=== PATIENT | female | born 1945 | race Caucasian/White ===

== ENCOUNTER → 2017-08-06 | Outpatient (CLI) | payer OTHER ==
[~2017-08-06] MED LIST: CLTP PO
[2017-08-06 13:03] LABS: BASO % 0.9 %; BASO ABS # 0.07 K/uL (0-0.2); EOS % 3.6 %; EOS ABS # 0.27 K/uL (0-0.5); HEMATOCRIT 38.7 % (37-47); HEMOGLOBIN 12.7 g/dL (12.0-16.0); IG# 0.02 K/uL (0.00-0.02); LYMPH % 32.2 %; LYMPH ABS # 2.44 K/uL (1.2-3.4); MEAN CELL VOLUME 91.3 fL (80-100); MEAN CORPUSCULAR HGB CONC 32.8 g/dl (32-36); MONO % 7.7 %; MONO ABS # 0.58 K/uL (0.11-0.59); NEUT % 55.3 %; NEUT ABS # 4.19 K/uL (1.4-6.5); PLATELET COUNT 353 K/uL (130-400); RED CELL DISTRIBUTION WIDTH CV 13.3 % (11.5-14.5); WHITE BLOOD COUNT 7.57 K/uL (4.8-10.8)
== END | disposition home or self-care (01) ==
LOC: C.LABBC 11:31
PROVIDERS: ATTEND Orthopaedic Surgery Orthopaedic Surgery of the Spine
DX: M54.9 Dorsalgia, unspecified (principal)

== ENCOUNTER → 2017-08-12 | Outpatient (CLI) | payer OTHER, BC ==
[~2017-08-12] MED LIST changes: +ASPI81TA28 PO; +ATOR-24 PO; +BRIM0.1S OPL; +CALC1TAB9 PO; +TRAM-10 PO
--- NOTE | 2017-08-12 17:38 | DIAGNOSTIC IMAGING REPORT ---
NUCLEAR MEDICINE THREE-PHASE WHOLE BODY BONE SCAN CLINICAL HISTORY: Back pain COMPARISON STUDY: No previous studies for comparison. FINDINGS: The patient was injected with 26.8 mCi of technetium 99m MDP. A vascular sequence centered on the spine was performed. There were no areas of hyperemia. Blood pool images were also acquired. These are unremarkable. Three-hour delayed whole body images were supplemented with spot images of the lumbar spine in multiple projections. Foci of increased activity within the right knee are felt to be degenerative. There is a focus of increased activity at the L3 level to the left of midline posteriorly. Correlation with conventional radiographic imaging and/or cross-sectional imaging is recommended. Foci of increased activity are also visualized symmetrically at the lumbosacral junction. These are likely degenerative. Again correlation with conventional radiographs and/or cross-sectional imaging would be of benefit. IMPRESSION: Unexplained focus of moderately intense increased activity at the L3 level to the left of midline. Correlation with conventional radiographic imaging and/or cross-sectional imaging is recommended in follow-up. Electronically signed by: Johnny Hong M.D. 08/12/2017 5:37 PM Dictated Date/Time: 08/12/2017 5:31 PM
== END | disposition home or self-care (01) ==
LOC: C.NUCL 12:57
PROVIDERS: ATTEND Orthopaedic Surgery Orthopaedic Surgery of the Spine
DX: M54.9 Dorsalgia, unspecified (principal)

== ENCOUNTER 2017-09-02 09:59 | Observation (INO) | payer OTHER, BC ==
[2017-08-22 09:17] VITALS: BMI 28.0
--- NOTE | 2017-08-22 09:41 | PAT Medication Instructions ---
Service Date Aug 22, 2017. Current Home Medication List Aspirin (Aspirin Ec), 81 MG PO QPM Atorvastatin (Lipitor), 40 MG PO QPM Brimonidine Tartrate (Alphagan P Oph), 1 DROP OPL BID Calcium Citrate-Vitamin D (Citracal + D3 Maximum), 1 TAB PO QAM Tramadol (Ultram), 50 MG PO UD PRN for Pain Medication Instructions For Your Scheduled Surgery - Hold the following medications the morning of surgery: Calcium Citrate-Vitamin D (Citracal + D3 Maximum), 1 TAB PO QAM - Take the following medications the morning of surgery with a sip of water: Brimonidine Tartrate (Alphagan P Oph), 1 DROP OPL BID (bring with you to the hospital) Tramadol (Ultram), 50 MG PO UD PRN for Pain (if needed, can be used up to four hours before surgery) - Take the following medications as scheduled the night before surgery: Aspirin (Aspirin Ec), 81 MG PO QPM Atorvastatin (Lipitor), 40 MG PO QPM Brimonidine Tartrate (Alphagan P Oph), 1 DROP OPL BID Tramadol (Ultram), 50 MG PO UD PRN for Pain (if needed) If you have any questions please call us at [phone] or [phone] or [phone]
--- NOTE | 2017-08-22 10:28 | DIAGNOSTIC IMAGING REPORT ---
CHEST 2 VIEWS ROUTINE CLINICAL HISTORY: Preoperative chest COMPARISON STUDY: No previous studies for comparison. FINDINGS: The cardiac and mediastinal contours are normal. There is no evidence of focal pulmonary consolidation. There is no evidence of failure. No pleural effusions are visualized.[ IMPRESSION: No active disease in the chest. Electronically signed by: Johnny Hong M.D. 08/22/2017 10:26 AM Dictated Date/Time: 08/22/2017 10:26 AM
[2017-08-22 11:22] LABS: PTT PATIENT 25.2 SECONDS (21.0-31.0)
[2017-08-22 11:32] LABS: CALCIUM 9.1 mg/dl (8.5-10.1); CREATININE 0.82 mg/dl (0.60-1.20); POTASSIUM 4.2 mmol/L (3.5-5.1)
--- NOTE | 2017-09-01 19:18 | HISTORY & PHYSICAL EXAMINATION ---
DATE OF ADMISSION: 09/02/2017 CHIEF COMPLAINT: Back and lower extremity difficulty, paresthesias, numbness and tingling, and gait abnormality, six weeks in duration, made worse with sitting, lying lifting, walking. X-rays MRIs all been performed. She has had images. She has had x-rays. She has had injections. She is worsening. She denies any worrisome issues such as fevers, sweats, chills. MEDICATIONS: Lipitor. SOCIAL HISTORY: . No alcohol or tobacco use. Active life. SURGICAL HISTORY: Breasts mass removal, hysterectomy. MEDICAL HISTORY: Positive for high cholesterol. No hypertension, COPD, carcinoma, kidney disease, liver disease. REVIEW OF SYSTEMS: She denies any blurred vision, double vision, tinnitus or vertigo, syncope. Denies any chest pain, palpitations. No asthma, wheezing, shortness of breath. Denies nausea, vomiting, urgency, frequency, dysuria. OBJECTIVE: GENERAL: She is alert, oriented, pleasant young lady. VITAL SIGNS: Blood pressure 130/80, pulse 80, respiration rate 16. She is 4 foot 10 inches, 138 pounds. She is alert, oriented. CARDIAC: Normal S1, S2, no S3. LUNGS: Clear to auscultation. No rales, rhonchi, wheezing. ABDOMEN: Soft, nontender, bowel sounds present in all quadrants. NEUROLOGIC: She is neurological intact, 5/5 strength, good sensation, good motor ability. No good reflex ability. Cranial and facial nerves all intact. No upper motor neuron pathology. Images demonstrate moderate stenosis at 4-5 and, S1. IMPRESSION: Moderate stenosis L4-5 and, S1 lumbar spine. PLAN: Includes a laminectomy L4-L5 and, S1 lumbar spine.
[2017-09-02] VITALS (7 sets, daily range): BP systolic 127–152; BP diastolic 77–97; PULSE 71–95; TEMP 36.3–36.7; O2SAT 92–99; Ht 147.3 cm; Wt 61.7 kg
[~2017-09-02] VITALS: Ht 147.3 cm; Wt 61.7 kg
[2017-09-02] MEDS: LACTATED RINGER'S 1000ML 1,000 ML IV SCH ×2 (06:00→14:29)
[~2017-09-02 09:59] MED LIST changes: +ATROPINE SULFATE 0.1 MG/ML 5ML SYR IV PRN; +CEFAZOLIN 1000MG IV PUSH 7.5 ML IV SCH; -CLTP PO; +EpHEDrine SULFATE INJ 50 MG/ML AMP IV PRN; +HYDROmorphone INJ 2 MG/ML SYR/VIAL IV PRN; +NSS 1000ML IV SCH; +ONDANSETRON INJ 2 MG/ML 2 ML VIAL IV PRN; +PHENYLEPHRINE 100MCG/ML 5ML SYR IV PRN
[2017-09-02] MEDS ORDERED: MIDAZOLAM HCL 1 MG/ML 2ML VIAL ONE (11:38)
[2017-09-02] MEDS ORDERED: PROPOFOL IV EMULSION 10 MG/ML 20 ML VIAL IV ONE (11:38)
[2017-09-02] MEDS ORDERED: GLYCOPYRROLATE INJ 0.2 MG/ML VIAL ONE (11:38)
[2017-09-02] MEDS ORDERED: NEOSTIGMINE METHYLSULFATE 5 MG/5 ML SYR ONE (11:38)
[2017-09-02] MEDS ORDERED: ONDANSETRON INJ 2 MG/ML 2 ML VIAL ONE (11:38)
[2017-09-02] MEDS ORDERED: SUCCINYLCHOLINE CHLORIDE 20 MG/ML 10 ML VIAL IV ONE (11:38)
[2017-09-02] MEDS ORDERED: EpHEDrine SULFATE INJ 50 MG/ML AMP ONE (11:38)
[2017-09-02] MEDS ORDERED: FENTANYL CITRATE INJ 50 MCG/1 ML 2 ML VIAL ONE (11:38)
[2017-09-02] MEDS ORDERED: PHENYLEPHRINE HCL INJ 10 MG/ML VIAL ONE (11:38)
[2017-09-02] MEDS ORDERED: DEXAMETHASONE SOD INJ 4 MG/ML VIAL ONE (11:38)
[2017-09-02] MEDS ORDERED: LIDOCAINE HCL 2% 2 ML VIAL (20MG/ML) ONE (11:38)
--- NOTE | 2017-09-02 12:10 | History & Physical Bridge Note ---
H&P Re-Evaluation Bridge Note: I have examined the patient, reviewed the History & Physical and in the interval since the performance of the History & Physical I have noted the following changes of clinical significance: No changes noted
[2017-09-02] MEDS ORDERED: GELATIN SPONGE SZ 100 ONE (12:21)
[2017-09-02] MEDS ORDERED: THROMBIN FOR SOLN 20000 UNIT KIT ONE (12:21)
[2017-09-02] MEDS ORDERED: VANCOMYCIN HCL 1000MG/20ML VIAL ONE (12:22)
[2017-09-02] MEDS ORDERED: BACITRACIN 50000 UNIT VIAL ONE (12:22)
[2017-09-02] MEDS ORDERED: BUPIVACAINE/EPINEPHRINE 0.5% MPF 1:200,000 30 ML VIAL ONE ×2 (12:22→12:23)
--- NOTE | 2017-09-02 13:50 | [facility] Post Operative Brief Note ---
Immediate Operative Summary Operative Date Sep 02, 2017. Pre-Operative Diagnosis Moderate stenosis L4-5 and, S1 lumbar spine. Post-Operative Diagnosis Moderate stenosis L4-5 and, S1 lumbar spine. Procedure(s) Performed L4-L5, L5-S1 Laminectomy Surgeon Dr. Pineda Derrickman Helper Surgeon(s) Daryl Reis PA-C Estimated Blood Loss 50 cc Findings Consistent with Post-Op Diagnosis Specimens none per surgeon Drains hemovac Anesthesia Type General Complication(s) none Disposition Disposition: Recovery Room / PACU
[2017-09-02] MEDS ORDERED: SODIUM CHLORIDE 0.9% 1000ML 1,000 ML IV SCH (13:56)
[2017-09-02] MEDS ORDERED: MAGNESIUM HYDROXIDE SUSP 30 ML UDC PO PRN (14:00)
[2017-09-02] MEDS ORDERED: METOCLOPRAMIDE HCL INJ 5 MG/ML 2 ML VIAL IV PRN (14:00)
[2017-09-02] MEDS ORDERED: LORAZEPAM 1 MG TAB PO PRN (14:00)
[2017-09-02] MEDS ORDERED: ACETAMINOPHEN 325 MG TAB PO PRN (14:00)
[2017-09-02] MEDS ORDERED: LORAZEPAM INJ 1 MG in SYRINGE 0.5 ML IV PRN (14:00)
[2017-09-02] MEDS ORDERED: HYDROmorphone INJ 2 MG/ML SYR/VIAL IV PRN ×2 (14:00)
[2017-09-02] MEDS ORDERED: ONDANSETRON INJ 2 MG/ML 2 ML VIAL IV PRN (14:00)
[2017-09-02] MEDS ORDERED: PROMETHAZINE HCL INJ 12.5 MG in SODIUM CHLORIDE 0.9% 50ML 50 ML IV PRN (14:00)
[2017-09-02] MEDS ORDERED: ROCURONIUM BROMIDE 10 MG/ML 5 ML VIAL IV ONE (14:06)
[2017-09-02] MEDS ORDERED: ESMOLOL HCL 10 MG/ML 10 ML VIAL ONE (14:06)
[2017-09-02] MEDS ORDERED: IV FLUIDS COMPLETED PRN (14:15)
--- NOTE | 2017-09-02 14:15 | DIAGNOSTIC IMAGING REPORT ---
LUMBAR SPINE, INTRAOPERATIVE FLUOROSCOPY HISTORY: L4-L5 and L5-S1 laminectomy. FLUOROSCOPY TIME: 1 second. FINDINGS: Intraoperative fluoroscopy was provided for the lumbar spine. Single fluoroscopic spot image demonstrates skin retractors posterior to the L4-S1 levels. IMPRESSION: Fluoroscopy provided for a L4-5 and L5-S1 laminectomies.. Electronically signed by: Fernando Mcmillan M.D. 09/02/2017 2:14 PM Dictated Date/Time: 09/02/2017 2:13 PM
--- NOTE | 2017-09-02 14:23 | OPERATIVE REPORT ---
DATE OF OPERATION: 09/02/2017 PREOPERATIVE DIAGNOSIS: Spinal stenosis of lumbar spine, L4, L5, and S1, 3-level spinal stenosis. POSTOPERATIVE DIAGNOSIS: Spinal stenosis of lumbar spine, L4, L5, and S1, 3-level spinal stenosis. PROCEDURE: Include laminectomy L4, L5, and sacrum, foraminotomy, partial facetectomy. SURGEON: Eddie Pineda DO SUGAR CHIPPER MACHINE OPERATOR: Daryl Reis PA-C COMPLICATIONS: Zero. BLOOD LOSS: 50 mL. DRAINS USED AT THE END: 1 Hemovac drain. ANESTHETIC: General. COUNTS: Sponge and needle count correct. IMPLANTS: No implants used. DESCRIPTION OF PROCEDURE: The patient was taken the operating room, placed prone, scrubbed, prepped and draped sterile. We made a skin incision, fascial incision, putting a deep self-retaining retractor. We decompressed the neural elements starting at the L5-S1 interspace, decompressing first the 5 lamina, then 4. We completed then with the sacral lamina. We did foraminotomies, exposed, and decompressed each and every nerve root. I was pleased with the decompression. There was no instability factors. We irrigated and closed in layers of over vancomycin powder and Hemovac drain. Sterile dressings applied. The patient returned to recovery room satisfactory and stable. I attest to the content of the Intraoperative Record and any orders documented therein. Any exception s are noted below.
[2017-09-02] MEDS ORDERED: HYDROmorphone INJ 0.5 MG/0.5 ML SYR ONE ×2 (14:25)
--- NOTE | 2017-09-02 14:58 | Anesthesiology Progress Note ---
Anesthesia Post Op Note Date & Time Sep 02, 2017 at 14:58 Vital Signs Pain Intensity: 4 Vital Signs Past 12 Hours Date Time Temp Pulse Resp B/P (MAP) Pulse Ox O2 Delivery O2 Flow Rate FiO2 09/02/17 14:55 36.2 76 18 131/73 97 Nasal Cannula 4 09/02/17 14:45 36.2 79 18 140/73 98 Nasal Cannula 4 09/02/17 14:35 80 18 133/71 98 Nasal Cannula 4 09/02/17 14:25 85 18 141/78 100 Oxymask 10 09/02/17 14:15 91 18 144/84 100 Oxymask 10 09/02/17 14:09 36.0 90 18 143/81 98 Oxymask 10 09/02/17 10:46 36.7 95 20 146/77 (100) 97 Room Air Notes Mental Status: alert / awake / arousable, participated in evaluation Pt Amnestic to Procedure: Yes Nausea / Vomiting: adequately controlled Pain: adequately controlled Airway Patency, RR, SpO2: stable & adequate BP & HR: stable & adequate Hydration State: stable & adequate Anesthetic Complications: no major complications apparent
[2017-09-02] MEDS: OXYCODONE/ACETAMINOPHEN 5-325 TAB PO PRN ×2 (17:23→17:56)
[2017-09-02] MEDS: DEXAMETHASONE INJ 10 MG in SYRINGE 0 ML IV SCH (17:26)
[2017-09-02] MEDS: CEFAZOLIN IV 1,000 MG in SYRINGE 0 ML IV SCH (19:47)
[2017-09-02] MEDS: ATORVASTATIN 40 MG TAB PO SCH (20:40)
[2017-09-02] MEDS: ASPIRIN 81 MG ECTAB PO SCH (20:40)
[2017-09-03] MEDS: DEXAMETHASONE INJ 10 MG in SYRINGE 0 ML IV SCH ×3 (02:04→17:34)
[2017-09-03 03:05] VITALS: BP 135/82; PULSE 75; TEMP 36.4; O2SAT 91
[2017-09-03] MEDS: CEFAZOLIN IV 1,000 MG in SYRINGE 0 ML IV SCH ×2 (03:54→12:45)
[2017-09-03] MEDS ORDERED: NURSING VERBAL MED ORDER ONE ×2 (04:45→10:15)
[2017-09-03] MEDS ORDERED: BISACODYL 10 MG SUPP PR PRN (06:00)
[2017-09-03] MEDS ORDERED: BISACODYL 5 MG TABEC PO PRN (06:00)
--- NOTE | 2017-09-03 07:43 | Anesthesiology Progress Note ---
Anesthesia Post Op Note Date & Time Sep 03, 2017 at 07:42 Vital Signs Vital Signs Past 12 Hours Date Time Temp Pulse Resp B/P (MAP) Pulse Ox O2 Delivery O2 Flow Rate FiO2 09/03/17 03:05 36.4 75 16 135/82 (99) 91 Room Air 09/03/17 00:08 Room Air 09/02/17 22:49 36.4 88 17 127/79 (95) 92 Room Air Notes Mental Status: alert / awake / arousable, participated in evaluation Pt Amnestic to Procedure: Yes Nausea / Vomiting: adequately controlled Pain: adequately controlled Airway Patency, RR, SpO2: stable & adequate BP & HR: stable & adequate Hydration State: stable & adequate Anesthetic Complications: no major complications apparent
--- NOTE | 2017-09-03 08:03 | Discharge Instructions ---
Discharge Instructions Date of Service Sep 03, 2017. Admission Reason for Admission: Lumbar Spinal Stenosis Discharge Discharge Diagnosis / Problem: same Discharge Goals Goal(s): Improve function Activity Recommendations Activity Limitations: as noted below Lifting Limitations: until after follow-up appointment home and recover . Instructions / Follow-Up Instructions / Follow-Up MEDICATIONS: Please take your prescriptions as instructed at your pre-op appointment. SPECIAL CARE: The following information is intended to answer some of the common questions and concerns regarding your surgery. Each patient is an individual and receives individual counselling throughout the course of treatment, from diagnosis to surgery all the way through recovery. What follows is not an exhaustive list, but should be a useful guide to some of the common questions and concerns patients have regarding their surgeries. These are not provided to keep you from calling us; rather, they give you something accurate and concrete to reference as you recover from your procedure. If you need us, we are available to you. As always, if you are not sure about something, call us at [phone]. MEDICAL EMERGENCIES: For these conditions, call 911 or go to your local hospital-based Emergency Department - not [facility] or equivalent. * Paralysis * Severe chest pain or difficulty breathing * Swelling or redness of either leg Spine procedures can be rather complex and though complications are rare, they do occur. In such cases, effective advice regarding emergency situations cannot always be addressed over the telephone. You may be referred to the emergency department for more effective management of your problem. Activity Limitations: It is important to give your body time to heal, so please limit your activities : * In general, don't do anything that moves your spine too much. You should avoid contact sports, twisting or heavy lifting while you recover. * 5-10 pounds is all you should attempt to lift. * You should not plan on driving for approximately 3 weeks and you should avoid traveling more than 30-45 minutes at a time. Longer trips should be broken down with walking breaks spaced appropriately. * Physical therapy is not usually required. * Walking and good posture practices will help you recover and regain your function. * Avoid straining or sudden changes in position. * In general, the goal is to take it easy and recover. Don't cause any new problems. Just relax. Showers: * Do not take a bath, use a Jacuzzi or hot tub or otherwise submerge your incision. * It is usually safe to take a shower 4-5 days after your surgery. * Your incision does not require any special creams or ointments. * Simply clean it with soap and water, dry and re-dress with a clean bandage afterwards. Incision: * Keep incision clean, dry and protected until your first follow-up appointment. * Some amount of drainage and redness is normal. Any drainage should be fairly clear and not have a foul odor. * If you feel anything is wrong or you have excessive drainage, please call us. * Your stitches and sushila will be removed 10-14 days after your surgery. At the time of your first post-op visit. * Neck surgeries are typically closed with a suture underneath the skin. The steri-strips over the incision should be maintained until we see you in the office. Bracing: * You may be provided with a back or neck brace to encourage good posture and prevent injury. It will remind you not to do too much as you heal and will alert others to the fact that you have had a surgery. * Back braces may be removed for showers and when you are resting at home. They must be worn when you are walking around for any period of time or for travel. * For neck surgery, you will likely be provided with two cervical collars. The soft collar ([place] or foam rubber) is worn most commonly throughout the day and while sleeping. The plastic collar (provided at the hospital) is for showering/bathing. * Except while eating, collars should remain in place. More specifically, bracing is provided for a purpose and should be worn. * Please obtain your brace or collars prior to your operation and bring them to the hospital with you on the day of surgery. * You should also bring your collars to your post-op appointment with Dr. Pineda. You should always take good care of your body and practice healthy habits, especially following surgery. You should: * Follow your doctor's treatment plan * Sit and stand properly with good posture (ears over shoulders, shoulders over hips) Don't slouch * Learn to lift correctly * Exercise regularly (low-impact aerobic exercise is especially good, but check with your doctor first) * Generally, be up and walking for 5-10 minutes at a time at least 3-4 times per day from the day you get home * Increasing walking to tolerance until you can walk for 20-30 minutes at a time * Attain and maintain a healthy body weight * Eat healthy foods ( a well-balanced, low-fat diet rich in fruits and vegetables) and get enough calcium * Avoid excessive use of alcohol When to call our office - If you notice any of the following: * Increased pain not relieve by pain medicine * Fevers greater then 100 degrees F, chills or flu symptoms * Increased redness around incision * Drainage from the incision that is not clear * Any foul smelling drainage * Swelling or fluid collection beneath the skin Miscellaneous: * In the hospital, you may be given a walker or cane for support while walking. These are temporary needs and are intended to prevent injuries due to falls. You may discontinue them when you feel strong and steady enough on your feet. * Sleep in a comfortable position. We find that many patients find a lounge chair or recliner with several pillows to be beneficial in the early post-operative period. * The support stockings should be used for 7-10 days and may be discontinued when you are back to walking more and conducting usual household activities. No problem is insignificant. We are here to help you and get you well. Contact us at [phone]. Definitions: Foraminotomy: If part of the disc or a bone spur (osteophyte) is pressing on a nerve as it leaves the vertebra (through an exit called the foramen), a foraminotomy may be done. Otomy means "to make an opening." A foraminotomy is making the opening of the foramen larger, so the nerve can exit without being compressed. Laminotomy: Similar to the foraminotomy, a laminotomy makes a larger opening, this time in your bony plate protecting your spinal canal and spinal cord (the lamina). The lamina may be pressing on your nerve, so the surgeon may make more room for the nerves using a laminotomy. Laminectomy: Sometimes, a laminotomy is not sufficient. The surgeon may need to remove all or part of the lamina. This procedure is called a laminectomy. This can often be done at many levels without any harmful effects. Current Hospital Diet Patient's current hospital diet: Regular Diet Discharge Diet Recommended Diet: Regular Diet Procedures Procedures Performed: L4-L5, L5-S1 Laminectomy Pending Studies Studies pending at discharge: no Medical Emergencies . Who to Call and When: Medical Emergencies: If at any time you feel your situation is an emergency, please call 911 immediately. . Non-Emergent Contact Non-Emergency issues call your: Primary Care Provider . "Provider Documentation" section prepared by Eddie Pineda. .
[2017-09-03 08:30] VITALS: BP 136/82; PULSE 84; TEMP 36.4; O2SAT 94
[2017-09-03] MEDS: OXYCODONE/ACETAMINOPHEN 5-325 TAB PO PRN ×4 (08:32→18:35)
[2017-09-03] MEDS: POLYETHYLENE (MIRALAX) 17 GM PACK PO SCH (08:33)
[2017-09-03] MEDS: CALCIUM 600MG + VIT D 400 IU TAB PO SCH (08:33)
[2017-09-03 10:20] VITALS: BP 135/76; PULSE 89; O2SAT 95
[2017-09-03 12:41] VITALS: BP 122/82; PULSE 78; TEMP 36.6; O2SAT 91
[2017-09-03] MEDS ORDERED: HYDR-5688 PO (15:52)
[2017-09-03 16:06] VITALS: BP 126/69; PULSE 89; TEMP 36.6; O2SAT 92
[2017-09-03] MEDS: ASPIRIN 81 MG ECTAB PO SCH (21:30)
[2017-09-03] MEDS: ATORVASTATIN 40 MG TAB PO SCH (21:30)
[2017-09-03 22:50] VITALS: BP 133/79; PULSE 70; TEMP 36.7; O2SAT 92
[2017-09-04] MEDS: DEXAMETHASONE INJ 10 MG in SYRINGE 0 ML IV SCH (02:17)
[2017-09-04] MEDS: OXYCODONE/ACETAMINOPHEN 5-325 TAB PO PRN ×2 (02:23→13:20)
[2017-09-04 07:28] VITALS: BP 150/80; PULSE 76; TEMP 36.6; O2SAT 91
--- NOTE | 2017-09-04 07:40 | DISCHARGE SUMMARY ---
She is alert, oriented. No chest pain, shortness of breath or confusion. Vital signs stable. Ambulates with assist. ASSESSMENT: Status post spinal stenosis surgery, doing well short run. DISPOSITION: Includes discharge home today. Prescription on her chart, she has medications. She has a followup. She was given instruction precautions from the office and here from the hospital. We will see her back in approximately 2 weeks.
[2017-09-04] MEDS: CALCIUM 600MG + VIT D 400 IU TAB PO SCH (09:24)
[2017-09-04] MEDS: POLYETHYLENE (MIRALAX) 17 GM PACK PO SCH (09:24)
[2017-09-04 12:11] VITALS: BP 150/80; PULSE 76; TEMP 36.6; O2SAT 91
== END 2017-09-04 13:44 | disposition home or self-care (01) ==
LOC: C.ACU 09:59 → C.3E 13:59 → ENRESERV 15:00
PROVIDERS: ADMIT Orthopaedic Surgery Orthopaedic Surgery of the Spine; ATTEND Orthopaedic Surgery Orthopaedic Surgery of the Spine
DX: M48.07 Spinal stenosis, lumbosacral region (principal); M54.17 Radiculopathy, lumbosacral region; H40.9 Unspecified glaucoma; E78.00 Pure hypercholesterolemia, unspecified; Z90.710 Acquired absence of both cervix and uterus